=== PATIENT | female | born 1955 | race Caucasian/White ===

== ENCOUNTER 2016-04-19 16:55 | Emergency (ER) | payer BC | END 2016-04-19 17:15 | disposition left against medical advice (07) | LOC: ER 16:55 | DX: Z53.20 Procedure and treatment not carried out because of patient's decision for unspecified reasons (principal) ==

== ENCOUNTER 2017-05-20 08:42 | Emergency (ER) | payer OTHER ==
[2017-05-20] MEDS ORDERED: ACETAMINOPHEN 1,000 MG/100 ML BTL IVPB ONE (08:57)
--- NOTE | 2017-05-20 08:57 | Emergency Department Record ---
History of Present Illness - General Chief Complaint: Fall Injury Stated Complaint: FALL/L ARM & RIB PAIN Time Seen by Provider: 05/20/17 08:50 Source: Patient, Family Mode of Arrival: Ambulatory Limitations: No limitations - History of Present Illness Initial Comments: 62 yo female presents after a fall at 7am in her home. She tripped landing on her left side. No LOC. No head injury. No neck pain or injury. She landed on her left shoulder and left ribs. She presents with pain in those areas and LUQ/Lower ribs. No anticoagulants. PCP is Dr Cedeño. No syncope. No recent changes in her health. No dizziness. The patient does report that she has had about a year of difficulty with the shoulder. She has had pain and has not been able to raise the shoulder above her head for about a year. She states she props the shoulder on her dresser to apply deodorant normally. MD Complaint: Fall -: Hour(s) (2) When Fall Occurred: 1-3 hours [employer] Fall Witnessed: No Place Fall Occurred: Home Loss of Consciousness: None Prolonged Down Time?: No Symptoms Prior to Fall: None Location: Chest Location - Extremities: Left: Shoulder Severity: Moderate Quality: Aching Associated Symptoms: Denies - [place] Coma Scale Eye Response: (4) Open spontaneously Motor Response: (6) Obeys commands Verbal Response: (5) Oriented [place] Total: 15 - Related Data Home Medications Medication Instructions Recorded Confirmed Last Taken Acetaminophen [Tylenol Arthritis] 1,300 mg PO BID 05/20/17 05/20/17 05/19/17 Aspirin [Aspir-Low] 81 mg PO DAILY 05/20/17 05/20/17 05/19/17 Calcium Carbonate [Calcium] 1,800 mg PO DAILY 05/20/17 05/20/17 05/19/17 Cholecalciferol (Vitamin D3) 2,000 unit PO BID 05/20/17 05/20/17 05/19/17 [Vitamin D3] Ferrous Sulfate, Dried [Iron] 160 mg PO ASDIR 05/20/17 05/20/17 05/19/17 Fish Oil/Dha/Epa [Fish Oil 1,200 3,600 mg PO DAILY 05/20/17 05/20/17 05/19/17 mg Fish Oil] Fluticasone Propionate [Flonase] 2 spray EACH NARES BID 05/20/17 05/20/17 Furosemide [Lasix] 80 mg PO DAILY 05/20/17 05/20/17 05/19/17 Hydroxychloroquine Sulfate 200 mg PO BID 05/20/17 05/20/17 05/19/17 [Plaquenil] Levothyroxine Sodium [Synthroid] 50 mcg PO DAILY 05/20/17 05/20/17 05/20/17 Levothyroxine Sodium [Synthroid] 200 mcg PO DAILY 05/20/17 05/20/17 05/20/17 Metformin HCl 500 mg PO BID 05/20/17 05/20/17 05/19/17 Naproxen Sodium [Aleve] 440 mg PO BID 05/20/17 05/20/17 05/19/17 Omeprazole [Prilosec] 20 mg PO BID 05/20/17 05/20/17 05/19/17 Sotalol HCl [Sotalol] 80 mg PO BID 05/20/17 05/20/17 05/19/17 Allergies Allergy/AdvReac Type Severity Reaction Status Date / Time adhesive Allergy RASH Verified 05/20/17 09:48 Review of Systems Constitutional: Denies: Chills, Fever, Malaise Eyes: Denies: Eye discharge, Vision change ENT: Reports: Dental pain (lower tooth hit uppper anterior palate). Denies: Congestion, Ear pain, Throat pain Respiratory: Denies: Cough, Dyspnea, Hemoptysis Cardiovascular: Reports: Chest pain (left ribs). Denies: Orthopnea, Syncope Endocrine: Denies: Fatigue Gastrointestinal: Reports: Abdominal pain (LUQ). Denies: Diarrhea, Nausea, Vomiting Genitourinary: Denies: Dysuria, Urgency Musculoskeletal: Reports: As per HPI, Arthralgia. Denies: Back pain, Joint swelling, Neck pain Skin: Denies: Bruising, Change in color, Rash Neurological: Denies: Confusion, Headache, Numbness, Tingling, Vertigo, Weakness Psychiatric: Denies: Anxiety Hematological/Lymphatic: Denies: Blood Clots, Easy bleeding, Easy bruising, Swollen glands Physical Exam - General General Appearance: Alert, Oriented x3, Cooperative, No acute distress Limitations: No limitations - Head Head exam: Atraumatic, Normocephalic, Normal inspection Head exam detail: negative: Abrasion, Contusion, General tenderness, Hematoma, Laceration - Eye Eye exam: Normal appearance, PERRL. negative: Conjunctival injection, Periorbital swelling, Periorbital tenderness, Scleral icterus Pupils: Normal accommodation - ENT ENT exam: Normal exam, Mucous membranes moist, Normal orophraynx Ear exam: Normal external inspection Nasal Exam: Normal inspection Mouth exam: Normal external inspection Teeth exam: Normal inspection, Other (2mm abrasion anterior upper gum, no FB or swelling). negative: Gingival enlargement - Neck Neck exam: Normal inspection, Full ROM. negative: Tenderness - Respiratory Respiratory exam: Normal lung sounds bilaterally, Chest wall tenderness. negative: Accessory muscle use, Decreased breath sounds, Prolonged expiratory, Respiratory distress, Rhonchi, Stridor, Wheezes - Cardiovascular Cardiovascular Exam: Regular rate, Normal rhythm, Normal heart sounds Peripheral Pulses: 2+: Radial (R), Radial (L) - GI/Abdominal GI/Abdominal exam: Soft, Tenderness (mild tenderness under Left lower most rib) . negative: Diminished bowel sounds, Distended, Guarding, Rebound, Rigid - Rectal Rectal exam: Deferred - exam: Deferred - Extremities Extremities exam: Normal inspection, Tenderness, Other (ROM limited to abduction to about 45 degree as well and anterior flexion. ). negative: Calf tenderness, Joint swelling, Normal capillary refill, Pedal edema Image of Full Body: 1 - tender anterior shoulder, no deformity, ROM painful but intact 2 - tender ribs on L, clear lungs, mild tender LUQ, abdomen is obese and soft - Back Back exam: Reports: Normal inspection, Full ROM. Denies: CVA tenderness (R), CVA tenderness (L), Paraspinal tenderness, Rash noted, Tenderness, Vertebral tenderness - Neurological Neurological exam: Alert, Normal gait, Oriented X3. negative: Altered - Psychiatric Psychiatric exam: negative: Agitated, Anxious - Skin Skin exam: Dry, Intact, Normal color, Warm Course - Reevaluation(s) Reevaluation #1: 05/20/17 09:03 The vitals were reviewed No acute changes. 05/20/17 09:30 The CBC was reviewed. Hgb is 11.5. NO changes from prior. Chronic. 05/20/17 10:01 No changes on the BMP Patient to radiology. Doing well. 05/20/17 10:34 The patient returned from Radiology Awaiting reading from radiology The prelim read of the shoulder demonstrates a fracture dislocation of the proximal humerus When Ct reads are complete orthopedic consult will be made 05/20/17 10:53 Fab[place] [facility] [place] [facility] There is no orthopedics on at [facility] at this time He accepts the patient for transfer She is stable to go by private car 05/20/17 11:19 No acute injury on the CT of the Chest or the abdomen The patient is stable for transfer by private car Medical Decision Making - Lab Data Result diagrams: 05/20/17 09:07 05/20/17 09:07 Disposition Disposition: Transfer Clinical Impression: Shoulder fracture, left Qualifiers: Encounter type: initial encounter Fracture type: closed Qualified Code(s): S42.92XA - Fracture of left shoulder girdle, part unspecified, initial encounter for closed fracture Shoulder dislocation Qualifiers: Encounter type: initial encounter Laterality: left Qualified Code(s): S43.005A - Unspecified dislocation of left shoulder joint, initial encounter Disposition: Acute Care Hospital Transfer [place] [facility] [place] For Transfer: Shoulder fracture dislocation, Ortho Accepting Physician: Rizwana Time Discussed w/Accepting Physician: 10:53 Condition: (2) Stable Instructions: Shoulder Dislocation (ED), Scapular Fracture (ED) Additional Instructions: Go directly to [facility] [place] Do not eat or drink until you are evaluated Forms: Patient Portal Access Time of Disposition: 10:53 Quality - Quality Measures Quality Measures: N/A - Blood Pressure Screening Does Patient Have Any of the Following: Active Dx of HTN Blood Pressure Classification: Pre-Hypertensive BP Reading Systolic Measurement: 139 Diastolic Measurement: 85 Screening for High Blood Pressure: Patient Exclusion, Hx of HTN [[id number]]
[2017-05-20 09:17] LABS: HEMATOCRIT 36.9 % (35.0-47.0); HEMOGLOBIN 11.5 gm/dl (11.6-16.0); MEAN CELL VOLUME 77.5 fl (81-97); MEAN CORPUSCULAR HGB CONC 31.2 g/dl (32-36); MEAN PLATELET VOLUME 8.5 fl (7.4-10.4); PLATELET COUNT 351 K/uL (130-400); RED BLOOD COUNT 4.76 M/uL (3.80-5.40); RED CELL DISTRIBUTION WIDTH 16.9 % (11.5-14.5); WHITE BLOOD COUNT W/O DIFF 10.8 K/uL (4.2-12.2)
[2017-05-20 09:18] LABS: MEAN CORPUSCULAR HEMOGLOBIN 24.1 pg (27-33)
[2017-05-20 09:28] LABS: ANISOCYTOSIS 1+; HYPOCHROMIA 1+; MICROCYTOSIS 1+; PLATELET ESTIMATE NORMAL (NORMAL); PROTHROMBIN TIME (PATIENT) 10.5 SECONDS (9.5-12.1)
[2017-05-20 09:29] LABS: BLOOD UREA NITROGEN 16 mg/dL (8-23); CREATININE 0.6 mg/dL (0.5-0.9); EST GLOMERULAR FILTRATION RATE > 60 mL/min
[2017-05-20 09:32] LABS: GLUCOSE,RANDOM 123 mg/dL (74-109)
--- NOTE | 2017-05-20 18:21 | RADIOLOGY REPORT ---
EXAM: SHOULDER, LEFT HISTORY: FALL, LEFT SHOULDER INJURY. TECHNIQUE: Three views left shoulder. COMPARISON: None. FINDINGS: There is a comminuted fracture of the proximal left humerus. Mild displacement of the fracture fragments. Slight impaction is present. The left humeral head is displaced somewhat inferiorly from the glenoid suggesting inferior dislocation. A joint effusion may be present. There are arthritic changes in the left glenohumeral joint. Some irregularity of the posterior bony glenoid is present, most likely arthritic. IMPRESSION: 1. COMMINUTED MILDLY DISPLACED FRACTURE OF THE PROXIMAL LEFT HUMERUS. 2. INFERIOR/ANTERIOR DISPLACEMENT OF THE PROXIMAL LEFT HUMERUS SUGGESTING DISLOCATION. 3. A JOINT EFFUSION MAY BE PRESENT. 4. IRREGULARITY OF THE BONY GLENOID, MOST LIKELY DUE TO ARTHRITIC CHANGE RATHER THAN ACUTE FRACTURE OF THE GLENOID. J[facility]BER: [id number] [facility]
--- NOTE | 2017-05-20 18:26 | CT SCAN REPORT ---
EXAM: CT SCAN CHEST W CONTRAST HISTORY: FALL, LEFT SHOULDER FRACTURE. TECHNIQUE: CT of the thorax is performed following intravenous contrast administration. 100 mL of Omnipaque-300 is used for this exam. COMPARISON: Left shoulder x-rays 05/20/2017. FINDINGS: Proximal left humerus fracture seen on the plain-film study not included on this examination. No displaced rib fractures identified. No mediastinal mass or hematoma. The thoracic aorta is of normal caliber. No pleural or pericardial effusion. There is no pneumothorax identified. A 2 mm nodule in the lateral right mid lung on image #28 of 66. A 3 mm nodule in the lower right lung on image #38 of 66. These are probably benign. No other lung mass or nodule identified. IMPRESSION: 1. NO ACUTE THORACIC PROCESS. 2. TWO TINY LUNG NODULES ARE PRESENT ON THE RIGHT, WHICH ARE PROBABLY BENIGN. FOLLOW-UP CHEST CT IN [id number] RECOMMENDED. 3. NOT MENTIONED ABOVE, THERE ARE A FEW NONSPECIFIC LYMPH NODES IN THE LEFT AXILLA AND LEFT INFRACLAVICULAR REGION. JOB [facility]BER: [id number] [facility]
--- NOTE | 2017-05-20 18:31 | CT SCAN REPORT ---
EXAM: CT SCAN ABDOMEN/PELVIS W CONTRAST HISTORY: FALL, PAIN. TECHNIQUE: CT of the abdomen and pelvis performed following intravenous and oral contrast administration. 100 mL of Omnipaque-300 contrast is used for this examination. COMPARISON: None. FINDINGS: A 7 mm low-density lesion is seen in the outer aspect of the liver and may represent a cyst or small hemangioma. This, however, is too small to definitively assess. Liver otherwise unremarkable. Spleen unremarkable. No pancreatic mass or inflammatory change. The bile ducts are not dilated. The gallbladder is surgical absent. No adrenal lesion seen. There is bilateral renal function with no renal mass or hydronephrosis. There are no dilated bowel loops. No pelvic mass, abscess, or adenopathy. There is no free air or free fluid identified. No lytic or blastic bone lesion. Arthritic changes are seen in the lower lumbar spine. IMPRESSION: 1. NO ACUTE ABDOMINAL OR PELVIC PROCESS IDENTIFIED. 2. A 7 MM HYPODENSE LIVER LESION. THIS IS TOO SMALL TO DEFINITIVELY ASSESS BUT COULD REPRESENT A CYST OR HEMANGIOMA. FOLLOW-UP EXAMINATION IN THREE TO SIX- MONTHS-TIME COULD BE PERFORMED. 3. ARTHRITIC CHANGES IN THE LOWER LUMBAR SPINE WITH NO FRACTURE OR ACUTE OSSEOUS ABNORMALITY IDENTIFIED. [facility]: [id number] [facility]
== END 2017-05-20 11:32 | disposition short-term general hospital (02) ==
LOC: ER 08:42
DX: S42.202A Unspecified fracture of upper end of left humerus, initial encounter for closed fracture (principal); R07.81 Pleurodynia; W01.10XA Fall on same level from slipping, tripping and stumbling with subsequent striking against unspecified object, initial encounter; Y92.009 Unspecified place in unspecified non-institutional (private) residence as the place of occurrence of the external cause
CPT/HCPCS: 99285 ×2; 96365; 85730; 85610; 80048; 85027; 73030; 71260; 74177; Q9967